=== PATIENT | male | born 1990 | race Caucasian/White ===

== ENCOUNTER 2017-06-15 20:52 | Emergency (ER) | payer SELFPAY ==
[~2017-06-15] VITALS: Ht 165.1 cm; Wt 75.0 kg
[2017-06-15] MEDS ORDERED: IBUPROFEN 600MG TABLET PO STA (21:11)
[2017-06-15] MEDS ORDERED: SODIUM CHLORIDE 0.9% 1,000 ML IV ONE (21:11)
[2017-06-15 21:57] LABS: *AMPHETAMINES SCREEN URINE NEGATIVE (NEGATIVE); *BARBITURATES SCREEN URINE NEGATIVE (NEGATIVE); *BENZODIAZEPINES SCREEN URINE NEGATIVE (NEGATIVE); *COCAINE SCREEN URINE NEGATIVE (NEGATIVE)
[2017-06-15 21:58] LABS: CANNABINOID URINE SCREEN NEGATIVE (NEGATIVE); METHADONE URINE SCREEN NEGATIVE (NEGATIVE); OPIATES URINE SCREEN NEGATIVE (NEGATIVE); PHENCYCLIDINE URINE SCREEN NEGATIVE (NEGATIVE)
[2017-06-15 23:33] LABS: BASOPHILS % 0.1 % (0.0-2.0); EOSINOPHILS % 0.3 % (0.0-5.0); HEMATOCRIT. 36.1 % (42.0-52.0); HEMOGLOBIN. 12.1 g/dL (14.0-18.0); LYMPHOCYTES % 8.4 % (20.0-50.0); MEAN CORPUSCULAR HEMOGLOBIN 27.6 pg (28.0-32.0); MEAN CORPUSCULAR VOLUME 82.4 fL (80.0-94.0); MEAN PLATELET VOLUME 8.2 fl (7.4-10.4); MONOCYTES % 4.2 % (2.0-8.0); PLATELET 238 x1000/uL (130-400); RED BLOOD CELL COUNT 4.38 mill/uL (4.7-6.1); RED CELL DISTRIBUTION WIDTH 13.3 % (11.6-14.6)
[2017-06-15 23:45] LABS: CHLORIDE 109 mEq/L (98-107)
[2017-06-15 23:47] LABS: ETHANOL BLOOD < 10 mg/dL
[2017-06-16 01:10] VITALS: BP 109/72
== END 2017-06-16 01:34 | disposition home or self-care (01) ==
LOC: ER 22:22
DX: R42 Dizziness and giddiness (principal); R51 Headache; R40.4 Transient alteration of awareness
CPT/HCPCS: 36415; 70450; 80053; 80305; 85025; 93005; 96360; 99285; G0482; J7030; Z7610